=== PATIENT | male | born 1990 | race African-American/Black ===

== ENCOUNTER 2018-02-01 14:15 | Emergency (ER) | payer MEDICAID ==
[~2018-02-01] VITALS: Ht 170.2 cm; Wt 108.0 kg
[2018-02-01 14:46] LABS: CLARITY URINE CLEAR (CLEAR); COLOR URINE YELLOW (YELLOW); KETONES URINE 1+ (NEGATIVE); LEUKOCYTE ESTERASE URINE NEGATIVE (NEGATIVE); NITRITE URINE NEGATIVE (NEGATIVE); OCCULT BLOOD URINE NEGATIVE (NEGATIVE); PROTEIN URINE NEGATIVE (NEGATIVE); UROBILINOGEN URINE 0.2 E.U./dL (0.2-1.0)
[2018-02-01 15:11] LABS: *AMPHETAMINES SCREEN URINE NEGATIVE (NEGATIVE); *BARBITURATES SCREEN URINE NEGATIVE (NEGATIVE); *BENZODIAZEPINES SCREEN URINE NEGATIVE (NEGATIVE); *COCAINE SCREEN URINE NEGATIVE (NEGATIVE); CANNABINOID URINE SCREEN PRESUMTIVE POSITIVE (NEGATIVE); METHADONE URINE SCREEN NEGATIVE (NEGATIVE); OPIATES URINE SCREEN NEGATIVE (NEGATIVE); PHENCYCLIDINE URINE SCREEN NEGATIVE (NEGATIVE)
[2018-02-01] MEDS ORDERED: LACTATED RINGERS 1,000 ML IV STA (15:27)
[2018-02-01] MEDS ORDERED: ONDANSETRON HCL 4MG/2ML VIAL IV ONE (15:30)
[2018-02-01] MEDS ORDERED: KETOROLAC 15MG/ML VIAL IV ONE (15:30)
[2018-02-01 15:39] LABS: HEMATOCRIT. 50.8 % (42.0-52.0); MEAN CORPUSCULAR HEMOGLOBIN 27.8 pg (28.0-32.0); MEAN CORPUSCULAR VOLUME 78.6 fL (80.0-94.0); MEAN PLATELET VOLUME 8.1 fl (7.4-10.4); PLATELET 248 x1000/uL (130-400); RED BLOOD CELL COUNT 6.46 mill/uL (4.7-6.1); RED CELL DISTRIBUTION WIDTH 13.6 % (11.6-14.6)
[2018-02-01 15:42] LABS: CHLORIDE 99 mEq/L (98-107)
[2018-02-01 15:43] LABS: INR 1.1; PROTHROMBIN TIME 11.1 sec (9.4-11.6)
[2018-02-01 15:52] LABS: BETA HYDROXYBUTYRATE 0.7 mMol/L (0.0-0.3)
[2018-02-01 16:28] LABS: PLATELET ESTIMATE NORMAL
[2018-02-01 17:30] VITALS: BP 135/86
== END 2018-02-01 17:44 | disposition home or self-care (01) ==
LOC: ER 14:29
DX: E11.10 Type 2 diabetes mellitus with ketoacidosis without coma (principal); E11.65 Type 2 diabetes mellitus with hyperglycemia; R19.7 Diarrhea, unspecified; F12.10 Cannabis abuse, uncomplicated
CPT/HCPCS: 36415; 80053; 80305; 81003; 82010; 83690; 85025; 85610; 96361; 96374; 96375; 99284; J1885; J2405; J7120; Z7610

== ENCOUNTER 2018-04-29 10:56 | Emergency (ER) | payer MEDICAID, OTHER ==
[~2018-04-29] VITALS: Ht 162.6 cm; Wt 101.0 kg
[2018-04-29] MEDS ORDERED: LIDOCAINE HCL/PF 1% 2ML VIAL INFIL ONE (12:00)
[2018-04-29] MEDS ORDERED: KETOROLAC 60MG/2ML VIAL IM ONE (12:00)
[2018-04-29] MEDS ORDERED: LIDOCAINE HCL/PF 1% 10 MG/ML 5ML VIAL IJ SCH (12:15)
[2018-04-29] MEDS ORDERED: CLINDAMYCIN PHOSPHATE 600MG/4ML VIAL IM ONE (13:00)
[2018-04-29 13:14] VITALS: BP 139/84
== END 2018-04-29 13:34 | disposition home or self-care (01) ==
LOC: ER 13:15
DX: L03.317 Cellulitis of buttock (principal); E11.9 Type 2 diabetes mellitus without complications
CPT/HCPCS: 10060; 96372; 99284; J1885; J3490; Z7610

== ENCOUNTER 2018-05-01 09:10 | Emergency (ER) | payer OTHER ==
[~2018-05-01] VITALS: Ht 170.2 cm; Wt 105.0 kg
[2018-05-01] MEDS ORDERED: ACETAMINOPHEN WITH CODEINE 300/30MG TABLET PO ONE (10:30)
[2018-05-01 10:37] VITALS: BP 145/85
== END 2018-05-01 11:22 | disposition home or self-care (01) ==
LOC: ER 09:10
DX: L02.31 Cutaneous abscess of buttock (principal); E11.9 Type 2 diabetes mellitus without complications
CPT/HCPCS: 10060; 99283

== ENCOUNTER 2018-05-04 11:26 | Emergency (ER) | payer OTHER ==
[~2018-05-04] VITALS: Ht 170.2 cm; Wt 107.0 kg
[2018-05-04] MEDS ORDERED: IBUPROFEN 600MG TABLET PO ONE (12:15)
[2018-05-04] MEDS ORDERED: BACITRACIN ZINC OINT UDPKT TOP ONE (12:15)
[2018-05-04 12:17] VITALS: BP 130/87
== END 2018-05-04 12:36 | disposition home or self-care (01) ==
LOC: ER 12:30
DX: Z48.00 Encounter for change or removal of nonsurgical wound dressing (principal); R03.0 Elevated blood-pressure reading, without diagnosis of hypertension; E11.9 Type 2 diabetes mellitus without complications
CPT/HCPCS: 99283

== ENCOUNTER 2018-11-24 14:31 | Emergency (ER) | payer MEDICAID, OTHER ==
[~2018-11-24] VITALS: Ht 170.2 cm; Wt 107.0 kg
[2018-11-24] MEDS ORDERED: ONDANSETRON 4MG ODT PO ONE (18:15)
[2018-11-24] MEDS ORDERED: HYDROCODONE/ACETAMINOPHEN 5/325MG TABLET PO ONE (18:15)
[2018-11-24] MEDS ORDERED: SULFAMETHOXAZOLE/TRIMETHOPRIM 800/160MG TABLET PO ONE (19:45)
[2018-11-24] MEDS ORDERED: LIDOCAINE HCL 1% 20ML VIAL (Pyxis) INJ INFIL ONE (19:45)
[2018-11-24] MEDS ORDERED: CEFTRIAXONE SODIUM 1 G/VIAL IM ONE (19:45)
[2018-11-24] MEDS ORDERED: SODIUM CHLORIDE 0.9% 1,000 ML IV ONE (19:47)
[2018-11-24] MEDS ORDERED: INSULIN REGULAR (HUMULIN R) 300UNITS/3ML IV ONE (20:00)
[2018-11-24] MEDS ORDERED: CEFTRIAXONE 1 G PREMIX 50 ML IV ONE (20:00)
[2018-11-24 21:44] VITALS: BP 128/96
== END 2018-11-24 21:46 | disposition home or self-care (01) ==
LOC: ER 14:31
DX: L03.115 Cellulitis of right lower limb (principal); E11.65 Type 2 diabetes mellitus with hyperglycemia; M79.89 Other specified soft tissue disorders
CPT/HCPCS: 82962; 93971; 96365; 96375; 99284; J0696; J1815; J7030; Q0162

== ENCOUNTER 2019-07-09 12:57 | Emergency (ER) | payer MEDICAID ==
[~2019-07-09] VITALS: Ht 170.2 cm; Wt 108.0 kg
[2019-07-09] MEDS ORDERED: METF-815 PO (13:08)
[2019-07-09 15:10] VITALS: BP 131/82
== END 2019-07-09 15:19 | disposition home or self-care (01) ==
LOC: ER 12:57
DX: B37.42 Candidal balanitis (principal); L01.00 Impetigo, unspecified; B35.4 Tinea corporis; E11.65 Type 2 diabetes mellitus with hyperglycemia; Z79.84 Long term (current) use of oral hypoglycemic drugs
CPT/HCPCS: 82962; 99283

== ENCOUNTER 2022-12-03 14:04 | Emergency (ER) | payer MEDICAID ==
[~2022-12-03] VITALS: Ht 170.2 cm; Wt 106.0 kg
[~2022-12-03 14:04] MED LIST: METF-873 PO
[2022-12-03 14:55] VITALS: BP 134/89
[2022-12-03 17:37] LABS: CLARITY URINE CLEAR (CLEAR); COLOR URINE YELLOW (YELLOW); KETONES URINE TRACE (NEGATIVE); LEUKOCYTE ESTERASE URINE NEGATIVE (NEGATIVE); NITRITE URINE NEGATIVE (NEGATIVE); OCCULT BLOOD URINE NEGATIVE (NEGATIVE); PH URINE 5.5 (4.5-8.0); PROTEIN URINE NEGATIVE (NEGATIVE)
== END 2022-12-03 18:44 | disposition home or self-care (01) ==
LOC: ER 14:11
DX: R10.9 Unspecified abdominal pain (principal); E11.9 Type 2 diabetes mellitus without complications
CPT/HCPCS: 81003; 99283